=== PATIENT | male | born 1980 | race Caucasian/White ===

== ENCOUNTER 2019-11-30 20:44 | Inpatient (IN) | payer SELFPAY ==
[2019-11-30] MEDS ORDERED: Adacel (T-DAP) 0.5 ML SYRINGE ONE (21:01)
--- NOTE | 2019-11-30 21:45 | RAD ---
Left knee 4 views HISTORY: Injury. FINDINGS: Joint spaces are preserved. No acute fracture, dislocation, or fluid distention of the supr apatellar bursa. Soft tissue swelling is evident over the anterior upper medial soft tissues. Oval lucencies in the ar ea of swelling may represent soft tissue gas. IMPRESSION : No acute osseous abnormalities are demonstrated. Soft tissue swelling the anterior medial aspect of the knee with possible soft tissue gas.
[2019-11-30] MEDS ORDERED: Cefepime 2 GM VIAL ONE (22:45)
[2019-11-30] MEDS ORDERED: cefTRIAXone\\ROCEPHIN 2 GM VIAL ONE (22:47)
--- NOTE | 2019-11-30 23:18 | CT ---
CT left knee noncontrast HISTORY: Injury. FINDINGS: Joint spaces are preserved. No acute fracture, dislocation, or aggressive osseous erosions. Fluid distends the suprapatellar bursa but is not contained within the bursa, extending superiorly in to the musculature and intermuscular planes. Edematous stranding is also present within the deep fat about the knee. Many small pockets of gas lie immediately medial to the suprapatellar bursa and within and surroundin g Hoffa's fat pad inferior to the patella. IMPRESSION : Intra and extra capsular joint fluid about the knee, involving primarily the suprapatellar bursa and extending superiorly from it. There is adjacent fat edema/inflammation. Small pockets of gas within the deep soft tissues around the suprapatellar bursa and within Hoffa's f at pad. Correlate for recent direct trauma versus aggressive inflammation/infection.
[2019-11-30 23:43] LABS: #Eosinphils 0.3 thou/uL (0.0-0.7); #Lymphocytes 2.2 thou/uL (1.20-3.40); #Monocytes 0.8 thou/uL (0.11-0.59); #Neutrophils 5.3 thou/uL (1.40-6.50); %Basophils 0.4 % (0.0-1.0); %Eosinophils 3.6 % (0.0-10.0); %Lymphocytes 25.2 % (21.0-51.0); %Monocytes 8.8 % (0.0-10.0); Hemoglobin 15.2 g/dL (14.0-18.0); Mean Corpuscular HGB CONC 31.9 g/dL (32.0-36.0); Mean Corpuscular Hemoglobin 29.6 pg (27.0-31.0); Mean Corpuscular Volume 92.8 fL (78.0-98.0); Platelet Count 209 thou/uL (130-400); RBC Distribution Width 12.2 % (11.5-14.5); Red Blood Cell (RBC) Count 5.14 mill/uL (4.70-6.10); White Blood Cell (WBC) Count 8.6 thou/uL (4.8-10.8)
[2019-11-30] MEDS ORDERED: Morphine 4 MG/ML VIAL ONE (23:43)
[2019-11-30] MEDS ORDERED: Vancomycin 1 GM/200 ML BAG ONE (23:43)
[2019-12-01 00:01] LABS: ALT (SGPT) 12 U/L (8-55); AST (SGOT) 16 U/L (5-34); Alkaline Phosphatase 78 U/L (40-110); Anion Gap 14 mmol/L (10-20); BUN (Urea Nitrogen) 15 mg/dL (8.9-20.6); Bilirubin, Total 0.3 mg/dL (0.2-1.2); Calc. Creatinine Clearance 0 mL/min (70-130); Carbon Dioxide 26 mmol/L (22-29); Chloride 104 mmol/L (98-107); Estimated GFR-MDRD 80; Globulin 2.4 g/dL (2.4-3.5); Glucose 101 mg/dL (70-105); Potassium 4.1 mmol/L (3.5-5.1); Protein, Total 6.4 g/dL (6.0-8.3); Sodium 140 mmol/L (136-145)
[2019-12-01] MEDS ORDERED: Ondansetron PF 4 MG/2 ML Vial IVP PRN (01:06)
[2019-12-01] MEDS ORDERED: Ondansetron ODT 4 MG TAB SL PRN (01:06)
[2019-12-01] MEDS: Sodium Chloride 0.9% 1,000 ML IV SCH ×2 (01:39→13:00)
[2019-12-01 01:57] VITALS: BMI 22.4
[2019-12-01] MEDS: HYDROcodone/Acetaminophen 10/325 mg Tablet PO PRN ×2 (05:02→15:03)
[2019-12-01] MEDS ORDERED: Piperacillin/Tazobactam 4.5 GM in Sodium Chloride 0.9% 100 ML IVPB SCH (06:00)
--- NOTE | 2019-12-01 08:19 | CON ---
DATE OF CONSULTATION: 12/01/2019 CHIEF COMPLAINT: Left knee pain. HISTORY OF PRESENT ILLNESS: Mr. Puckett is a 39-year-old male, who was working with a [employer] drill. He accidentally injured his left knee. The drill penetrated the anterior medial aspect of the knee. This occurred on Monday morning. He worsened overnight and worsened yesterday. He had pain in the knee and was limping. He presented to the emergency department fairly late last night and was admitted to the hospital for a suspected infection. He has received vancomycin and Zosyn. He is currently resting comfortably. His only complaint is knee pain. PAST MEDICAL HISTORY: The patient denies active medical problems. PAST SURGICAL HISTORY: He had a left eye surgery when he was 8 years old. Otherwise, no recent surgeries. ALLERGIES: TO IODINE AND SHELLFISH. THE PATIENT DENIES ALCOHOL USE. HE HAS USED RECREATIONAL DRUGS INCLUDING LSD, BUT NOT RECENTLY. HE SMOKES CIGARETTES DAILY. FAMILY MEDICAL HISTORY: Noncontributory. IMAGING: X-rays of the left knee as well as CT scan reviewed. These demonstrate a soft tissue defect with a pass and some scant gas near the anterior medial aspect of the knee consistent with his trauma. There is a positive knee effusion. PHYSICAL EXAMINATION: VITAL SIGNS: Temperature is 98.2, pulse is 75, respiratory rate is 16, oxygen saturations 96%. Blood pressure is 108/71. GENERAL: He is alert and oriented, sitting upright, in no apparent distress. RESPIRATORY: Breathing comfortably. HEENT: Normocephalic and atraumatic. CARDIOVASCULAR: Pulses palpable and regular. CHEST: Clear to auscultation. MUSCULOSKELETAL: The left lower extremity has a small puncture wound over the anterior medial knee just medial to the patella. There is a large knee effusion. He has difficulty with flexion of the knee past 25 degrees. He is resting in a 15-degree flexed posture. He has pain to palpation. He is neurovascularly intact distally. Faint erythema. IMPRESSION: Intra-articular injury to the left knee with drill bit with infection. PLAN: The patient has been started on vancomycin and Zosyn. He is currently not n.p.o. We will make him n.p.o. at midnight. If he has not had a significant improvement, we will plan for irrigation and debridement of the knee in the operating room tomorrow. He is aware of risks and benefits and wants to proceed with this. Goal is to prevent worsening of his infection or cartilage damage. He is at risk for recurrent infection and other complications such as post-infection arthritis. He will have pain control and DVT prophylaxis. Job ID: [id number]
[2019-12-01] MEDS: Vancomycin 1.5 GRAM/300 ML BAG 1.5 GM in Premix Bag 1 BAG IVPB SCH ×2 (09:25→21:15)
[2019-12-01] MEDS: Morphine 2 MG/ML SYRINGE SLOW IVP PRN (21:15)
[2019-12-02] MEDS: HYDROcodone/Acetaminophen 10/325 mg Tablet PO PRN ×3 (05:14→21:10)
[2019-12-02] MEDS: Vancomycin 1.5 GRAM/300 ML BAG 1.5 GM in Premix Bag 1 BAG IVPB SCH (08:39)
[2019-12-02] MEDS ORDERED: Ketorolac Tromethamine 30 MG/ML VIAL ONE (11:13)
[2019-12-02] MEDS ORDERED: Lidocaine 1% PF 5 ML VIAL ONE (11:13)
[2019-12-02] MEDS ORDERED: PROPOFOL 200 MG/20 ML VIAL ONE (11:13)
[2019-12-02] MEDS ORDERED: Ondansetron PF 4 MG/2 ML Vial ONE (11:13)
[2019-12-02] MEDS ORDERED: Dexamethasone 20 MG/5 ML VIAL ONE (11:13)
[2019-12-02] MEDS ORDERED: Fentanyl 100 MCG/2 ML VIAL ONE ×2 (12:17→13:27)
[2019-12-02] MEDS ORDERED: Promethazine HCl 25 MG/ML VIAL IM PRN (13:23)
[2019-12-02] MEDS ORDERED: Promethazine HCl 25 MG/ML VIAL SLOW IVP PRN (13:23)
[2019-12-02] MEDS ORDERED: Ondansetron HCl/PF 4 MG/2 ML Vial IVP PRN (13:23)
[2019-12-02] MEDS ORDERED: cefTRIAXone\\ROCEPHIN 2 GM in Sodium Chloride 0.9% 100 ML IVPB SCH (14:00)
[2019-12-02 14:18] LABS: RBC Count-Automated (BF) 20311 /cumm; WBC/Nucleated-Auto (BF) 16547 uL
[2019-12-02 14:20] LABS: RBC Count-Automated (BF) 14410 /cumm; WBC/Nucleated-Auto (BF) 15864 uL
[2019-12-02 14:55] LABS: BF Color Pink; Body Fluid Source Synovial Fluid; Clarity Cloudy/Turbid (Clear); Tube # 1
[2019-12-02] MEDS: Morphine 2 MG/ML SYRINGE SLOW IVP PRN ×2 (15:09→23:34)
[2019-12-02 15:12] LABS: BF Segmented Neutrophils 51 %; Cell Count Non Hematic 48 %; Lymphocytes 1 %
[2019-12-02 15:28] LABS: BF Segmented Neutrophils 60 %; Cell Count Non Hematic 36 %; Lymphocytes 4 %
--- NOTE | 2019-12-02 23:17 | OP ---
DATE OF PROCEDURE: 12/02/2019 PREOPERATIVE DIAGNOSIS: Septic left knee. POSTOPERATIVE DIAGNOSIS: Septic left knee. PROCEDURE PERFORMED: Left knee arthrotomy with irrigation. ANESTHESIA: General. 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 TOURNIQUET TIME: 20 minutes at 300 mmHg. COMPLICATIONS: None. DRAINS: Medium Hemovac x1. SPECIMEN: Aspirate sent to lab for Gram stain, culture, and sensitivity as well as cell count. OUTCOME: Satisfactory. INDICATIONS FOR PROCEDURE: The patient is a 39-year-old gentleman, who had an accidental self-inflicted penetrating injury to the medial aspect of the knee. 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 Approximately, 24 hours after injury, he presented to the emergency room where he was found to have an effusion within the knee with very limited range of motion from full extension to only about 30 degrees with significant pain. Given these findings, we opted to proceed to the operating room now for an irrigation procedure of this knee to rule out sepsis. Informed consent has been obtained. I believe all questions answered. DESCRIPTION OF PROCEDURE: The patient was brought to the operating room and a time-out performed followed by induction of general anesthesia. Next, a sterile prep and drape was performed of this left lower extremity. Next, a left medial parapatellar arthrotomy was performed. With entering the joint, he was found to have a hemosiderin stained somewhat cloudy fluid, this was aspirated and sent to the lab for cell count, Gram stain, culture, and sensitivity. Next, a total of 3 L of normal saline was irrigated through this knee until all remaining fluid was clear. With completion of this, a medium Hemovac was passed through this arthrotomy site out the anterior lateral aspect of the suprapatellar pouch and then the knee was closed, this was done with 0 Vicryl for the joint capsule and medial retinaculum, followed by 2-0 Vicryl and alida for the skin. Xeroform gauze and Theo wrap dressing were applied to the knee and then patient was transferred to recovery room in stable condition. Total tourniquet time was 20 minutes. There were no complications. Job ID: [id number]
[2019-12-03] MEDS: HYDROcodone/Acetaminophen 10/325 mg Tablet PO PRN ×3 (01:43→11:53)
[2019-12-03] MEDS: Morphine 2 MG/ML SYRINGE SLOW IVP PRN ×2 (04:51→10:20)
[2019-12-03] MEDS ORDERED: Sulfameth/Trimethoprim DS 800-160mg TAB PO SCH ×2 (07:45→21:00)
[2019-12-03 11:50] VITALS: BP 122/75; TEMP 98.2
--- NOTE | 2019-12-04 13:55 | DIS ---
DATE OF ADMISSION: 12/01/2019 DATE OF DISCHARGE: 12/03/2019 ADMISSION DIAGNOSIS: Puncture wound to the left knee involving the joint space. POSTOPERATIVE DIAGNOSIS: Puncture wound to the left knee involving the joint space. DESCRIPTION OF PROCEDURE: The patient underwent a left knee arthrotomy, washing out the joint space with closure and dressing. No hospital complications. No vital sign issues. DISCHARGE CONDITION: Good/stable. DISPOSITION: Home. FOLLOWUP: Followup would be in 10 to 14 days for suture removal and followup. The patient was given prophylactic antibiotics to take for this time. He understood the discharge instructions, and if he had any questions or concerns, he would follow up sooner. Job ID: [id number]
--- NOTE | 2019-12-05 08:54 | PQF ---
Lexa Puckett CHRISTOPHER E MD [id number] CLINICAL DOCUMENTATION CLARIFICATION FORM: POST DISCHARGE Addendum to original discharge summary date: ____ Late entry note date: __ DATE:12/05/2019 ATTN: Varghese Puente Please exercise your independent, professional judgment in responding to the clarification form. Clinical indicators are provided on the bottom of this form for your review In your clinical opinion based on clinical findings below, can you please futher clarify Septic Knee if: Please check appropriate box(s): [ ] Sepsis with knee infection [ x ] knee infection Only [ ] Other diagnosis [ ] Unable to determine For continuity of documentation, please document condition throughout progress notes and discharge summary. Thank You. CLINICAL INDICATORS - SIGNS / SYMPTOMS / LABS Knee swab 12/01 No growth Vital signs 11/30 BP 113/81, Pulse 110, Resp 16, Temp 98.6 ED notes p7 Concern for erythema and swelling og the left knee joint ED notes p7 Given location of puncture concern for infection into the joint space ED notes p7 Pt with left knee pain after injury with a drill bit yesterday ED notes p7 Left knee cellulitis OP Note 12/01 irrigation procedure of the knee to rule out sepsis RISK FACTORS ED notes p7 Left knee puncture wound involving joint space Consult p2 11/30 Intra-articular injury to the left knee with drill bit with infection Operative report 12/01 Septic Knee ED notes p3 - Smoker TREATMENTS Sep 25 IV ancef 2gm SEP 25 IV Maxipime 2gm Sep 25 IV Rocephin 2gm SEP 25 IV Vancomycin 1.5gm SEP 25 IV Morphine 4mg SEP 25 Bactrim 1tab oral Operative report 12/01 Arthrotomy wiyth irrgation By Dr Gonzales CT knee 11/29 Knee Xray 11/29 (This form is maintained as a part of the permanent medical record) 2014 [employer] All Rights Reserved [email or web address]
--- NOTE | 2019-12-05 08:55 | PQF ---
Lexa Puckett CHRISTOPHER E MD [id number] CLINICAL DOCUMENTATION CLARIFICATION FORM: POST DISCHARGE Addendum to original discharge summary date: ____ Late entry note date: __ DATE: ATTN: Varghese Puente Please exercise your independent, professional judgment in responding to the clarification form. Clinical indicators are provided on the bottom of this form for your review Please check appropriate box(s) to clarify if the following diagnosis has been ruled in or ruled out: Cellulitis of knee [ x ] Ruled in diagnosis [ ] Continue to treat [ ] Resolved [ ] Ruled out diagnosis [ ] Cannot rule out diagnosis [ ] Other diagnosis [ ] Unable to determine For continuity of documentation, please document condition throughout progress notes and discharge summary. Thank You. CLINICAL INDICATORS - SIGNS / SYMPTOMS / LABS Knee swab 12/01 No growth Vital signs 11/30 BP 113/81, Pulse 110, Resp 16, Temp 98.6 ED notes p7 Concern for erythema and swelling og the left knee joint ED notes p7 Given location of puncture concern for infection into the joint space ED notes p7 Pt with left knee pain after injury with a drill bit yesterday ED notes p7 Left knee cellulitis OP Note 12/01 irrigation procedure of the knee to rule out sepsis RISK FACTORS ED notes p7 Left knee puncture wound involving joint space Consult p2 11/30 Intra-articular injury to the left knee with drill bit with infection Operative report 12/01 Septic Knee ED notes p3 - Smoker TREATMENTS Mar 11/29 IV ancef 2gm SEP 25 IV Maxipime 2gm Sep 25 IV Rocephin 2gm SEP 25 IV Vancomycin 1.5gm SEP 25 IV Morphine 4mg SEP 25 Bactrim 1tab oral Operative report 12/01 Arthrotomy wiyth irrgation By Dr Gonzales CT knee 5/9 Knee Xray 11/29 (This form is maintained as a part of the permanent medical record) 2014 [employer] All Rights Reserved [email or web address]
== END 2019-12-03 13:43 | disposition home or self-care (01) | DRG 486 ==
LOC: ERS 20:44 → SURG A 12-01 00:07 → EEVIPCON 12-01 00:07
PROVIDERS: ADMIT Orthopaedic Surgery; ATTEND Orthopaedic Surgery
PROC: 0S9D00Z Drainage of Left Knee Joint with Drainage Device, Open Approach (ICD-10-PCS; principal; 2019-12-01)
PROC: 3E0234Z Introduction of Serum, Toxoid and Vaccine into Muscle, Percutaneous Approach (ICD-10-PCS; 2019-12-01)
DX: M00.9 Pyogenic arthritis, unspecified (principal); L03.116 Cellulitis of left lower limb; S81.032A Puncture wound without foreign body, left knee, initial encounter; M25.462 Effusion, left knee; X58.XXXA Exposure to other specified factors, initial encounter; Z91.041 Radiographic dye allergy status; Z91.013 Allergy to seafood; Z23 Encounter for immunization
CPT/HCPCS: 36415; 80053; 85025; 85060; 87070; 87205; 89051; 90471; 90715; 96365; 96367; 96375; J0690; J0692; J0696; J1100; J1885; J2001; J2270; J2405; J2543; J2704; J3010; J3370; J3490

== ENCOUNTER 2020-10-16 19:21 | Emergency (ER) | payer SELFPAY | END 2020-10-16 20:07 | LOC: ERS 19:21 | DX: T40.601A Poisoning by unspecified narcotics, accidental (unintentional), initial encounter (principal); F17.210 Nicotine dependence, cigarettes, uncomplicated | CPT/HCPCS: 99284 ==

== ENCOUNTER 2020-11-05 16:36 | Emergency (ER) | payer SELFPAY ==
[2020-11-05] MEDS ORDERED: Amoxicillin/Potassium Clav 875 MG TAB ONE (18:16)
[2020-11-05] MEDS ORDERED: Lidocaine 1% w/Epinephrine 1:100K 20 ML VIAL ONE ×2 (18:17)
== END 2020-11-05 19:04 ==
LOC: ERS 16:36
DX: S02.611A Fracture of condylar process of right mandible, initial encounter for closed fracture (principal); S01.111A Laceration without foreign body of right eyelid and periocular area, initial encounter; J45.909 Unspecified asthma, uncomplicated; F17.210 Nicotine dependence, cigarettes, uncomplicated; Y04.0XXA Assault by unarmed brawl or fight, initial encounter
CPT/HCPCS: 12011; 70486

== ENCOUNTER 2021-01-30 01:34 | Emergency (ER) | payer OTHER, SELFPAY ==
[2021-01-30] MEDS ORDERED: Ondansetron ODT 4 MG TAB ONE (02:07)
[2021-01-30] MEDS ORDERED: Ibuprofen 200 MG TAB ONE (02:42)
[2021-01-30] MEDS ORDERED: Acetaminophen 500 MG TAB ONE (02:42)
== END 2021-01-30 02:48 ==
LOC: ERS 01:34
DX: M25.512 Pain in left shoulder (principal); G43.909 Migraine, unspecified, not intractable, without status migrainosus; J45.909 Unspecified asthma, uncomplicated; F17.210 Nicotine dependence, cigarettes, uncomplicated; W01.198A Fall on same level from slipping, tripping and stumbling with subsequent striking against other object, initial encounter
CPT/HCPCS: Q0162